=== PATIENT | male | born 1960 | race Caucasian/White ===

== ENCOUNTER 2018-10-01 12:22 | Emergency (ER) | payer OTHER ==
[~2018-10-01] VITALS: Ht 182.9 cm; Wt 122.5 kg
[2018-10-01 13:10] LABS: BILIRUBIN,URINE NEGATIVE (NEGATIVE); CLARITY,URINE SL CLOUDY (CLEAR); COLOR,URINE RED (YELLOW); KETONES,URINE NEGATIVE (NEGATIVE); LEUKOCYTE ESTERASE ,URINE NEGATIVE (NEGATIVE); NITRITE,URINE NEGATIVE (NEGATIVE); PROTEIN,URINE DIPSTICK 1+ (NEGATIVE); URINE UROBILINOGEN 0.2 mg/dL (0.2 - 1)
[2018-10-01 13:12] LABS: RBC,URINE >50 /HPF (0-5)
[2018-10-01 14:30] VITALS: BP 136/86
== END 2018-10-01 14:33 | disposition home or self-care (01) ==
LOC: ER 12:22
DX: R31.0 Gross hematuria (principal); R30.0 Dysuria; I10 Essential (primary) hypertension
CPT/HCPCS: 81001; 99283

== ENCOUNTER 2018-10-10 11:24 | Emergency (ER) | payer OTHER ==
[~2018-10-10] VITALS: Ht 182.9 cm; Wt 124.7 kg
--- NOTE | 2018-10-10 12:00 | Diagnostic Imaging Report ---
Exam: Right knee 3 views History: Pain with weightbearing Comparison: None. Findings: No acute, displaced fracture or dislocation. Joint spaces are well-maintained. No definite joint effusion. Soft tissues are unremarkable. Impression: No acute osseous abnormality. Signed by: Dr. Vijay Farah M.D. on 10/10/2018 11:56 AM
[2018-10-10] MEDS ORDERED: HYDROCODONE/APAP 5MG-325MG TAB ONE (12:05)
[2018-10-10] MEDS ORDERED: CLINDAMYCIN PHOS 300MG/2ML VIAL ONE (12:22)
[2018-10-10] MEDS ORDERED: HYDROCODONE/APAP 5MG-325MG TAB PO ONE (12:45)
[2018-10-10 12:56] VITALS: BP 119/80
[2018-10-10] MEDS ORDERED: HYDROCODONE/APAP 10MG-325MG TAB PO ONE (13:00)
[2018-10-10] MEDS ORDERED: CLINDAMYCIN PHOS 900MG/ 50ML 50 ML IV SCH (18:00)
== END 2018-10-10 13:25 | disposition home or self-care (01) ==
LOC: FSED 11:24
DX: M25.561 Pain in right knee (principal); L03.115 Cellulitis of right lower limb; R26.2 Difficulty in walking, not elsewhere classified; I10 Essential (primary) hypertension
CPT/HCPCS: 85025; 99284

== ENCOUNTER → 2018-10-12 | Outpatient (CLI) | payer OTHER ==
[~2018-10-12] MED LIST: ASPIR 8181 MG PO; AVODART0.5 MG PO; DIOVAN160 MG PO; FLOMAX0.4 MG PO; IOPAMIDOL 370 MG/ML 200 ML INFUS..BTL INJ ONE; METOPROLOL TART50 MG PO; SIMVASTATIN20 MG PO; SODIUM CHLORIDE 0.9% 250ML 250 ML ONE; VITAMIN B-121000 MC2; VITAMIN B-121000 MCG PO; vitamin d PO
[2018-10-12 14:02] LABS: BLOOD UREA NITROGEN 12 mg/dL (7-26); BUN/CREATININE RATIO 13 (6-25); CREATININE, SERUM 0.96 mg/dL (0.72-1.25); EST GLOMERULAR FILTRATION RATE > 60 ML/MIN (60-)
--- NOTE | 2018-10-12 16:11 | Diagnostic Imaging Report ---
EXAMINATION: CT of the abdomen and pelvis with and without contrast. TECHNIQUE: Spiral CT images of the abdomen and pelvis were performed from the lung bases to the lesser trochanters after the intravenous administration of 100 cc Isovue-370. Imaging was performed in prone position per CT urogram protocol. Coronal and sagittal reformatted images were obtained. COMPARISON: None. CLINICAL HISTORY:Gross hematuria DISCUSSION: ABDOMEN/PELVIS: LOWER THORAX:Unremarkable. HEPATOBILIARY: No focal hepatic lesions. No intra-or extrahepatic biliary ductal dilation. The gallbladder is normal. SPLEEN: No splenomegaly. PANCREAS: No focal masses or ductal dilatation. ADRENALS: No adrenal nodules. KIDNEYS/URETERS: 4-5 mm right lower pole calculus with an adjacent cluster of right lower pole calculi measuring 9 mm in aggregate dimension. 4 mm left ureteropelvic junction calculus without hydronephrosis. Excretory phase images show no additional filling defects within the upper collecting systems or ureters. 8-9 mm calculus in the urinary bladder (series 3 image 170). Subcentimeter hypoattenuating lesions in both kidneys are too small to further characterize but likely represent small cysts. PELVIC ORGANS/BLADDER: As above. PERITONEUM/RETROPERITONEUM: No free air or fluid. LYMPH NODES: No pelvic sidewall, retroperitoneal, or mesenteric lymphadenopathy. VESSELS: Atherosclerotic calcification of the abdominal aorta, major branch vessels, and iliac arterial systems without aneurysmal dilatation. Retroaortic left renal vein. GI TRACT: The large bowel shows no distention or wall thickening. Gas and fecal material is noted throughout. The appendix is not identified and may have been removed. No right lower quadrant inflammation. BONES AND SOFT TISSUE: No bony destructive lesions. No soft tissue abnormalities. IMPRESSION: Bilateral nonobstructing renal calculi, measuring up to 9 mm in aggregate dimension on the right and 4 mm at the left ureteropelvic junction. 8-9 mm calculus in the dependent portion of the urinary bladder. Atherosclerotic vascular disease. Signed by: Dr. Vijay Farah M.D. on 10/12/2018 4:07 PM
== END ==
LOC: CT 12:52
PROVIDERS: ATTEND Urology
DX: R31.0 Gross hematuria (principal); N20.0 Calculus of kidney
CPT/HCPCS: 36415; 74178; 82565; 84520; J7050; Q9967

== ENCOUNTER 2018-12-24 08:50 | Inpatient (IN) | payer OTHER ==
[~2018-12-24] VITALS: Ht 182.9 cm; Wt 122.5 kg
[2018-12-24] MEDS ORDERED: SODIUM CHLORIDE 0.9% 1000ML 1,000 ML IV STA (08:52)
--- OUTSIDE RECORDS SUMMARY | 2018-12-24 08:52 | XMS REPORT ---
Author Author [facility] Address Unknown Phone Unavailable Care Team Providers Care Dialysis Registered Nurse Name Role Phone CR WEINBERG Unavailable Unavailable Angie CHARLES Unavailable Unavailable Problems This patient has no known problems. Allergies, Adverse Reactions, Alerts This patient has no known allergies or adverse reactions. Medications This patient has no known medications. Results Test Description Test Time Test Comments Text Results Atomic Results Result Comments CT ABDOMEN/PELVIS WOW 2018-10-12 15:59:00 [facility] [address] [address] Patient Name: EDWIN GONZALEZ MR #: [id number] : 1960 Age/Sex: 58/M Req #: [id number] Adm Physician: Ordered by: CR WEINBERG MD Report #: [id number] Location: CT Room/Bed: Procedure: [id number] CT/CT ABDOMEN/PELVIS WOW Exam Date: 10/12/18 Exam Time: 1440 REPORT STATUS: Signed EXAMINATION: CT of the abdomen and pelvis with and without contrast. TECHNIQUE: Spiral CT images of the abdomen and pelvis were performed from the lung bases to the lesser trochanters after the intravenous administration of 100 cc Isovue-370. Imaging was performed in prone position per CT urogram protocol. Coronal and sagittal reformatted images were obtained. COMPARISON: None. CLINICAL HISTORY:Gross hematuria DISCUSSION: ABDOMEN/PELVIS: LOWER THORAX:Unremarkable. HEPATOBILIARY: No focal hepatic lesions. No intra-or extrahepatic biliary ductal dilation. The gallbladder is normal. SPLEEN: No splenomegaly. PANCREAS: No focal masses or ductal dilatation. ADRENALS: No adrenal nodules. KIDNEYS/URETERS: 4-5 mm right lower pole calculus with an adjacent cluster of right lower pole calculi measuring 9 mm in aggregate dimension. 4 mm left ureteropelvic junction calculus without hydronephrosis. Excretory phase images show no additional filling defects within the upper collecting systems or ureters. 8-9 mm calculus in the urinary bladder (series 3 image 170). Subcentimeter hypoattenuating lesions in both kidneys are too small to further characterize but likely represent small cysts. PELVIC ORGANS/BLADDER: As above. PERITONEUM/RETROPERITONEUM: No free air or fluid. LYMPH NODES: No pelvic sidewall, retroperitoneal, or mesenteric lymphadenopathy. VESSELS: Atherosclerotic calcification of the abdominal aorta, major branch vessels, and iliac arterial systems without aneurysmal dilatation. Retroaortic left renal vein. GI TRACT: The large bowel shows no distention or wall thickening. Gas and fecal material is noted throughout. The appendix is not identified and may have been removed. No right lower quadrant inflammation. BONES AND SOFT TISSUE: No bony destructive lesions. No soft tissue abnormalities. IMPRESSION: Bilateral nonobstructing renal calculi, measuring up to 9 mm in aggregate dimension on the right and 4 mm at the left ureteropelvic junction. 8-9 mm calculus in the dependent portion of the urinary bladder. Atherosclerotic vascular disease. Signed by: Dr. Leticia Toney M.D. on 10/12/2018 4:07 PM Dictated By: LETICIA TONEY MD 1609 Transcribed By: PHILLY on 10/12/18 1605 COPY TO: CR WEINBERG MD KNEE 3VW RT - HOPD 2018-10-10 11:54:00 [address] [address] Patient Name: EDWIN GONZALEZ MR #: [id number] : 1960 Age/Sex: 58/M Req #: [id number] Adm Physician: Ordered by: NENA CHARLES MD Report #: [id number] Location: [facility] Room/Bed: Procedure: [id number] HOPD/KNEE 3VW RT - HOPD Exam Date: 10/10/18 Exam Time: 1145 REPORT STATUS: Signed Exam: Right knee 3 views History: Pain with weightbearing Comparison: None. Findings: No acute, displaced fracture or dislocation. Joint spaces are well-maintained. No definite joint effusion. Soft tissues are unremarkable. Impression: No acute osseous abnormality. Signed by: Dr. Leticia Toney M.D. on 10/10/2018 11:56 AM Dictated By: LETICIA TONEY MD 11 56 Transcribed By: PHILLY on 10/10/18 0822 COPY TO: NENA CHARLES MD
--- OUTSIDE RECORDS SUMMARY | 2018-12-24 08:52 | XMS REPORT | Clinical Summary ---
Author Author [facility] Organization [facility] Address Unknown Phone Unavailable Care Team Providers Care Shot Hole Shooter Name Role Phone Antonio Heredia MD PCP Allergies No Known Allergies Medications End Date Status Medication Sig Dispensed Refills Start Date Active valsartan-hydrochlorothia TK 1 T PO QD 11 zide (DIOVAN-HCT) 160-25 9 mg per tablet Active tamsulosin (FLOMAX) 0.4 0 mg capsule 9 Active simvastatin (ZOCOR) 20 MG TK 1 T PO QHS 11 tablet 9 Active metoprolol succinate XL TK 1 T PO QHS 11 (TOPROL-XL) 50 mg 24 hr 9 tablet Active dutasteride (AVODART) 0.5 TK ONE C PO 11 mg capsule QHS 9 Active Problems Problem Noted Date Calculus, kidney 10/24/2018 Encounters Care Team Description Date Type Specialty Willie Draper MD RIGHT ESWL 10/24/2018 Surgery General Surgery eSb Maguire MD Mathew, Jibie Elizabeth 10/24/2018 Anesthesia General Surgery Event Willie Draper MD 10/24/2018 Hospital General Surgery Encounter after 12/23/2017 Family History Medical History Relation Name Comments Cancer Brother Cancer Father Diabetes Mother Relation Name Status Comments Brother prostate Father prostate Mother Social History Date Tobacco Use Types Packs/Day Years Used Current Every Day Smoker Cigarettes 0.5 40 Smokeless Tobacco: Never Used Tobacco Cessation: Ready to Quit: No; Counseling Given: No Drinks/Week oz/Week Comments Alcohol Use 5 Shots of liquor 5.0 Yes Sex Assigned at Date Recorded Not on file Industry Job Start Date Occupation Not on file Not on file Not on file Travel End Travel History Travel Start No recent travel history available. Last Filed Vital Signs Reading Time Taken Comments Vital Sign 149/84 10/24/2018 4:50 PM CDT Blood Pressure 61 10/24/2018 4:50 PM CDT Pulse 36.4 C (97.6 F) 10/24/2018 4:21 PM CDT Temperature 17 10/24/2018 4:50 PM CDT Respiratory Rate 99% 10/24/2018 4:50 PM CDT Oxygen Saturation - - Inhaled Oxygen Concentration - - Weight - - Height - - Body Mass Index Plan of Treatment Health Maintenance Due Date Last Done Comments COLONOSCOPY SCREENING 02/03/2010 SHINGLES VACCINES (#1) 02/03/2010 INFLUENZA VACCINE 11/15/2018 Procedures Comments Procedure Name Priority Date/Time Associated Diagnosis OR AN ELECTIVE Routine 10/24/2018 SUPRAGLOTTIC AIRWAY 3:23 PM CDT Procedure Note - Eleonora Ch - 10/24/2018 3:23 PM CDT Airway Performed by: Eleonora Ch Authorized by: Michael Maguire MD Location: OR Urgency: Elective Difficult Airway: No Anesthesio logist: Michael Maguire MD Resident/C RNA/AA: Eleonora Ch Performed by: resident/C RNA/AA Preoxygena tamanna with 100% O2: Yes C-spine Precaution s Maintained Throughout : Yes Mask Ventilatio n: Not attempted Final Airway Type: Supraglott ic airway Final LMA: Unique LMA Size: 5 Number of Attempts at Approach: 1 EXTRACORPOREAL SHOCKWAVE 10/24/2018 RIGHT KIDNEY STONE N20.0 LITHOTRIPSY (ESWL) 3:11 PM CDT Special Needs NEXTMED CONF# [id number] EVELIN PT WILL BE AM ARRIVAL/BL XR ABDOMEN 1 VW STAT 10/24/2018 12:20 PM CDT after 12/23/2017 Results * XR Abdomen 1 Vw (10/24/2018 12:20 PM CDT) Specimen Narrative Performed At EXAMINATION:XR ABDOMEN 1 VW [facility] CLINICAL HISTORY:kidney stone COMPARISON:None. IMPRESSION: 1.There is a 9 mm calculus in the right lower renal pole, and a couple of additional sub-5 mm right intrarenal lower pole calculi. No left renal calculus is seen. 2.Calculi in the pelvis are indeterminate but likely phleboliths. The largest is 11 mm to the right of the lower sacrum. 3.The bowel gas pattern is normal. 4.There are degenerative changes in the hips. [id number] Procedure Note Hm Interface, Radiology Results Incoming - 10/24/2018 12:29 PM CDT EXAMINATION: XR ABDOMEN 1 VW CLINICAL HISTORY: kidney stone COMPARISON: None. IMPRESSION: 1. There is a 9 mm calculus in the right lower renal pole, and a couple of additional sub-5 mm right intrarenal lower pole calculi. No left renal calculus is seen. 2. Calculi in the pelvis are indeterminate but likely phleboliths. The largest is 11 mm to the right of the lower sacrum. 3. The bowel gas pattern is normal. 4. There are degenerative changes in the hips. 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
[2018-12-24] MEDS ORDERED: METOPROLOL TARTRATE 25 MG TAB PO SCH (09:00)
[2018-12-24] MEDS ORDERED: ONDANSETRON HCL INJ 2MG/ML 2ML 2 MG/ML VIAL IV PRN (09:00)
[2018-12-24] MEDS ORDERED: NITROGLYCERIN 0.4 MG SUBL SL PRN (09:00)
[2018-12-24] MEDS ORDERED: MORPHINE SULFATE 2 MG/ML SYR 1ML IV PRN (09:00)
[2018-12-24 09:16] LABS: BASOPHILS % 0.5 % (0.0-1.0); EOSINOPHILS # (AUTO) 0.3 (0.0-0.4); EOSINOPHILS % 4.7 % (0.0-6.0); HEMATOCRIT 40.3 % (38.2-49.6); LYMPHOCYTES # (AUTO) 2.4 (1.0-3.2); LYMPHOCYTES % 43.2 % (18.0-39.1); MEAN CORPUSCULAR HEMOGLOBIN 33.2 pg (28-32); MEAN CORPUSCULAR HGB CONC 34.7 g/dL (31-35); MEAN CORPUSCULAR VOLUME 95.5 fL (81-99); MONOCYTES # (AUTO) 0.5 (0.2-0.8); MONOCYTES % 8.9 % (4.4-11.3); NEUTROPHILS # (AUTO) 2.3 (2.1-6.9); NEUTROPHILS % 42.3 % (38.7-80.0); PLATELET COUNT 210 x10e3/uL (140-360); RED BLOOD COUNT 4.22 x10e6/uL (4.3-5.7); RED CELL DISTRIBUTION WIDTH 13.4 % (11.7-14.4)
[2018-12-24 09:17] LABS: BILIRUBIN,URINE NEGATIVE (NEGATIVE); CLARITY,URINE CLEAR (CLEAR); COLOR,URINE YELLOW (YELLOW); KETONES,URINE NEGATIVE (NEGATIVE); LEUKOCYTE ESTERASE ,URINE NEGATIVE (NEGATIVE); NITRITE,URINE NEGATIVE (NEGATIVE); PROTEIN,URINE DIPSTICK NEGATIVE (NEGATIVE); URINE UROBILINOGEN 0.2 mg/dL (0.2 - 1)
[2018-12-24] MEDS ORDERED: vitamin d PO (09:23)
[2018-12-24] MEDS ORDERED: AVODART0.5 MG PO (09:23)
[2018-12-24] MEDS ORDERED: FLOMAX0.4 MG PO (09:23)
[2018-12-24] MEDS ORDERED: METOPROLOL TART50 MG PO (09:23)
[2018-12-24] MEDS ORDERED: VITAMIN B-121000 MCG PO (09:23)
[2018-12-24] MEDS ORDERED: SIMVASTATIN20 MG PO (09:23)
[2018-12-24] MEDS ORDERED: VITAMIN B-121000 MC2 (09:23)
[2018-12-24] MEDS ORDERED: ASPIR 8181 MG PO (09:23)
[2018-12-24] MEDS ORDERED: DIOVAN160 MG PO (09:23)
--- NOTE | 2018-12-24 09:26 | Diagnostic Imaging Report ---
EXAMINATION: CHEST SINGLE (PORTABLE) INDICATION: Chest pain COMPARISON: None FINDINGS: LINES/TUBES:EKG leads overlie the chest. LUNGS:The lungs are moderately inflated. No focal consolidation or pulmonary edema. Mild subsegmental atelectasis at the right lung base. PLEURA:No pleural effusion or pneumothorax. MEDIASTINUM:The cardiomediastinal silhouette is mildly enlarged. BONES/SOFT TISSUES:No acute osseous injury. ABDOMEN:No free air under the diaphragm. IMPRESSION: No focal pneumonia or pulmonary edema. Mild subsegmental atelectasis at the right lung base. Mild cardiomegaly. Signed by: Syed Figueroa MD on 12/24/2018 9:23 AM
[2018-12-24 09:28] LABS: INR 0.9; PROTHROMBIN TIME 12.6 seconds (11.9-14.5)
[2018-12-24 09:29] LABS: PARTIAL THROMBOPLASTIN TIME 30.1 seconds (23.8-35.5)
[2018-12-24] MEDS: ASPIRIN 325 MG TAB EC PO SCH (09:30)
[2018-12-24] MEDS ORDERED: ASPIRIN 81 MG CHEW TAB PO ONE (09:30)
[2018-12-24] MEDS ORDERED: ENOXAPARIN SOD INJ 120 MG/0.8 ML SYR SC ONE (09:30)
[2018-12-24] MEDS ORDERED: ONDANSETRON HCL INJ 2MG/ML 2ML 2 MG/ML VIAL IV ONE ×2 (09:30→11:00)
[2018-12-24] MEDS ORDERED: MORPHINE SULFATE INJ 4 MG/ML INJ 1ML IV ONE ×2 (09:30→11:00)
[2018-12-24] MEDS ORDERED: METOPROLOL TARTRATE 50 MG TAB PO ONE (09:30)
[2018-12-24] MEDS ORDERED: PANTOPRAZOLE 40 MG 10ML VIAL IV ONE (09:30)
--- OUTSIDE RECORDS SUMMARY | 2018-12-24 09:30 | XMS REPORT | Clinical Summary ---
Author Author [facility] Address Unknown Phone Unavailable Care Team Providers Care Production Officer Name Role Phone Antonio Heredia MD PCP [...] MD RIGHT ESWL 10/24/2018 Surgery General Surgery Seb Maguire MD Mathew, Jibie Elizabeth 10/24/2018 Anesthesia [...] Comments Procedure Name Priority Date/Time Associated Diagnosis FL AN ELECTIVE Routine 10/24/2018 SUPRAGLOTTIC AIRWAY 3:23 [...] 3:11 PM CDT Special Needs NEXTMED CONF# [id number] EVELIN PT WILL BE AM ARRIVAL/BL XR [...] 4.There are degenerative changes in the hips. [id number] Procedure Note Hm Interface, Radiology Results Incoming [...] There are degenerative changes in the hips. [id number] Performing Organization Address City/State/Zipcode Phone Number [facility] [address] [place] [address] after 12/23/2017 Insurance Type Payer Benefit Subscriber ID Effective Phone Address Plan / Dates Group O [facility] UMR xxxxxxxx 2017-P [employer] CHOICE [employer] Advance Directives For more information, please contact: [phone] Patient Operations Lead Explanation Type Date Recorded Advance Directives, Living Will and Medical Power of Platform Consultant
[2018-12-24 09:36] LABS: ALANINE AMINOTRANSFERASE 21 IU/L (0-55); ALBUMIN 3.7 g/dL (3.5-5.0); ALBUMIN/GLOBULIN RATIO 1.3 (0.8-2.0); ALKALINE PHOSPHATASE 40 IU/L (40-150); ANION GAP 15.1 mmol/L (8-16); BLOOD UREA NITROGEN 13 mg/dL (7-26); BUN/CREATININE RATIO 16 (6-25); CALCIUM 9.3 mg/dL (8.4-10.2); CARBON DIOXIDE 25 mmol/L (22-29); CHLORIDE 104 mmol/L (98-107); CREATINE KINASE 92 IU/L (30-200); CREATININE, SERUM 0.83 mg/dL (0.72-1.25); EST GLOMERULAR FILTRATION RATE > 60 ML/MIN (60-); GLUCOSE 93 mg/dL (74-118); LIPASE 25 U/L (8-78); MAGNESIUM 1.8 MG/DL (1.3-2.1); POTASSIUM 4.1 mmol/L (3.5-5.1); SODIUM 140 mmol/L (136-145)
[2018-12-24] MEDS: NICOTINE 21 MG/EA PATCH TOP SCH (09:37)
[2018-12-24 09:38] LABS: BACTERIA,URINE FEW /HPF; EPITHELIAL CELLS,URINE FEW /LPF; MUCUS,URINE MODERATE (RARE); RBC,URINE 0-5 /HPF (0-5)
[2018-12-24] MEDS: FAMOTIDINE 20 MG/2 ML VIAL IV SCH ×2 (09:38→21:00)
[2018-12-24] MEDS: LISINOPRIL 10 MG TAB PO SCH (09:39)
[2018-12-24 09:56] LABS: THYROID STIMULATING HORMONE 0.601 uIU/mL (0.350-4.940)
[2018-12-24] MEDS ORDERED: HYDROCORTISONE SOD SUCCINATE 100 MG VIAL IV ONE (11:30)
--- NOTE | 2018-12-24 11:58 | Diagnostic Imaging Report ---
EXAM: CT Chest WITH contrast- Pulmonary Embolism Protocol INDICATION: Chest pain COMPARISON: Chest radiograph of earlier the same day. TECHNIQUE: Chest was scanned utilizing a multidetector helical scanner from the lung apex through the level of the diaphragm after administration of IV contrast. Thin section reconstructions were obtained with special concentration on the pulmonary arteries. Coronal and sagittal reformations were obtained. Pulmonary embolism protocol was performed. IV CONTRAST: 100 cc of Isovue 370 RADIATION DOSE: Total DLP: 617.95 mGy*cm Dose modulation, iterative reconstruction, and/or weight based adjustment of the mA/kV was utilized to reduce the radiation dose to as low as reasonably achievable. COMPLICATIONS: None FINDINGS: LINES/ TUBES: None. PULMONARY ARTERIES: No filling defect is identified within the pulmonary arteries to the segmental level. The subsegmental pulmonary arteries are not well opacified. Main pulmonary artery measures 3.4 in diameter. LUNGS AND AIRWAYS: The central airways are patent. No focal consolidation. Mild bibasilar dependent subsegmental atelectasis. No suspicious pulmonary nodules. PLEURA: The pleural spaces are clear. HEART AND MEDIASTINUM: The thyroid gland appears unremarkable. No supraclavicular, axillary, subpectoral, or mediastinal lymphadenopathy. Mild cardiomegaly. No pericardial effusion. No right heart strain. UPPER ABDOMEN: Limited contrast-enhanced views of the upper abdomen demonstrate no focal abnormality in the partially visualized liver, gallbladder, spleen, pancreas, adrenals, or upper most kidneys. BONES: No acute osseous injury. Mild degenerative changes of the visualized spine. No suspicious lytic or blastic lesions. SOFT TISSUES: Unremarkable. IMPRESSION: No pulmonary embolism. No focal lung consolidation. Mild cardiomegaly. Signed by: Syed Figueroa MD on 12/24/2018 11:55 AM
[2018-12-24] MEDS: ENOXAPARIN SODIUM INJ 100 MG/ML SYR SC SCH ×2 (12:35→21:00)
[2018-12-24] MEDS ORDERED: SODIUM CHLORIDE 0.9% 50ML 50 ML ONE (16:53)
[2018-12-24] MEDS ORDERED: IOPAMIDOL 370 MG/ML 200 ML INFUS..BTL INJ ONE (16:54)
--- NOTE | 2018-12-24 17:04 | History and Physical ---
Mr. Sargent is a very pleasant 58-year-old man, who presents to the emergency room this morning with a complaint of left-sided chest discomfort. HISTORY OF PRESENT ILLNESS: The patient reports that this began when he woke up about 4 o'clock this morning, which is the usual time for him to get ready to go to work, but he reports it was a left-sided squeezing chest discomfort that had some radiation to both arms and hands. He reports he did have a similar symptom like this 3 or 4 years ago and had an ER evaluation that evidently was unrevealing and has not recurred until this time. PAST MEDICAL HISTORY: Significant for hypertension and hyperlipidemia. He has had previous prostate problems and takes a medication for that. MEDICATIONS: He reports his current home medications include aspirin 81 mg daily, vitamin B12, Avodart 0.5 mg daily, metoprolol tartrate 50 mg at bedtime, simvastatin 20 mg daily, Flomax 0.4 mg daily, and Diovan 160 mg daily. PERSONAL AND SOCIAL HISTORY: The patient started smoking as a teenager, which is about 40 years ago. PAST SURGICAL HISTORY: The patient had appendectomy and tonsillectomy as a child. REVIEW OF SYSTEMS: CARDIAC: Not known any cardiac diagnosis in the past. PHYSICAL EXAMINATION: GENERAL: At this time shows a large obese white man, who is uncomfortable. VITAL SIGNS: Current blood pressure 140/70. He reports he is about 6 feet tall and thinks he is about 270 pounds. HEAD, EYES, EARS, NOSE, AND THROAT: Unremarkable. NECK: No jugular venous distention. No bruits. THORAX: Left chest wall very tender to palpation. HEART: Sounds S1 and S2 are equal. No murmurs. LUNGS: Clear. ABDOMEN: Protuberant. Normal bowel sounds. EXTREMITIES: No cyanosis, clubbing, or edema. Distal pulses are intact. PERTINENT LABORATORY STUDIES: Show white cell count 5.5 and hemoglobin 14.0. Chemistry show normal sodium and potassium, BUN 13, creatinine 0.8, and glucose 93. Troponins normal. BNP 16. TSH 0.6. Urinalysis shows 6 to 10 white cells and 0 to 5 red cells. Chest x-ray suggests some atelectasis. ASSESSMENT: 1. Atypical chest discomfort. 2. Chest wall pain. 3. Hypertension. 4. Hyperlipidemia. 5. History of tobacco abuse. PLAN: We will monitor him carefully. Give one dose of IV Solu-Cortef and recheck cardiac enzymes, echocardiogram, and plan stress Cardiolite for the morning. Further management based on clinical course. MD DWIGHT Camarena/BILLY /[id number] cc: Antonio Heredia
--- NOTE | 2018-12-24 17:58 | NUR ---
Recvd patient from ER via wheelchair accompanied with his . AAOx3 ambulates. chest pain rating 4/10, no distress noted, call light in reach
--- NOTE | 2018-12-24 18:15 | NUR ---
collected blood and sent to lab 2nd cardiac markers
[2018-12-24 18:35] VITALS: BP 128/78
[2018-12-24 18:56] LABS: CREATINE KINASE 80 IU/L (30-200)
--- NOTE | 2018-12-24 19:34 | NUR ---
Received change of shift report from AM nurse. Walking rounds completed.
[2018-12-24 20:00] VITALS: BP 133/71
[2018-12-24] MEDS: METOPROLOL TARTRATE 25 MG TAB PO SCH (21:00)
[2018-12-24] MEDS ORDERED: SIMVASTATIN 40 MG TAB PO SCH (21:00)
--- NOTE | 2018-12-24 21:00 | NUR ---
Patient c/o CP. Given pain and nausea meds as ordered by MD. Continue monitor.
--- NOTE | 2018-12-25 | NUR ---
Patient states pain meds helped relieve pain.
[2018-12-25 04:00] VITALS: BP 118/77
[2018-12-25 05:53] LABS: BASOPHILS % 0.2 % (0.0-1.0); EOSINOPHILS # (AUTO) 0.1 (0.0-0.4); EOSINOPHILS % 1.6 % (0.0-6.0); HEMATOCRIT 36.7 % (38.2-49.6); HEMOGLOBIN 12.5 g/dL (14.0-18.0); LYMPHOCYTES % 36.6 % (18.0-39.1); MEAN CORPUSCULAR HEMOGLOBIN 32.9 pg (28-32); MEAN CORPUSCULAR HGB CONC 34.1 g/dL (31-35); MEAN CORPUSCULAR VOLUME 96.6 fL (81-99); MONOCYTES # (AUTO) 0.8 (0.2-0.8); MONOCYTES % 10.2 % (4.4-11.3); NEUTROPHILS # (AUTO) 4.2 (2.1-6.9); NEUTROPHILS % 51.3 % (38.7-80.0); PLATELET COUNT 194 x10e3/uL (140-360); RED CELL DISTRIBUTION WIDTH 13.2 % (11.7-14.4)
[2018-12-25 06:30] LABS: ALANINE AMINOTRANSFERASE 17 IU/L (0-55); ALBUMIN 3.4 g/dL (3.5-5.0); ALBUMIN/GLOBULIN RATIO 1.4 (0.8-2.0); ALKALINE PHOSPHATASE 34 IU/L (40-150); ANION GAP 12.4 mmol/L (8-16); BLOOD UREA NITROGEN 16 mg/dL (7-26); BUN/CREATININE RATIO 19 (6-25); CALCIUM 8.9 mg/dL (8.4-10.2); CARBON DIOXIDE 28 mmol/L (22-29); CHLORIDE 102 mmol/L (98-107); CHOL/HDL RATIO 4.2 (3.9-4.7); CHOLESTEROL 184 MD/DL (0-199); CREATININE, SERUM 0.83 mg/dL (0.72-1.25); EST GLOMERULAR FILTRATION RATE > 60 ML/MIN (60-); GLUCOSE 95 mg/dL (74-118); HDL CHOLESTEROL 44 MG/DL (40-60); LDL CHOLESTEROL 89 MG/DL (60-130); MAGNESIUM 1.9 MG/DL (1.3-2.1); POTASSIUM 3.4 mmol/L (3.5-5.1); SODIUM 139 mmol/L (136-145); TRIGLYCERIDES 253 MG/DL (0-149)
[2018-12-25 07:36] LABS: CREATINE KINASE MB 0.7 ng/mL (0-5.0)
[2018-12-25 08:00] VITALS: BP 133/78
[2018-12-25 08:18] VITALS: BP 133/78
[2018-12-25] MEDS: FAMOTIDINE 20 MG/2 ML VIAL IV SCH (09:21)
[2018-12-25] MEDS: NICOTINE 21 MG/EA PATCH TOP SCH (09:22)
[2018-12-25] MEDS: ENOXAPARIN SODIUM INJ 100 MG/ML SYR SC SCH (09:22)
[2018-12-25] MEDS ORDERED: POTASSIUM CHLORIDE 10MEQ EA PO ONE ×2 (10:40→14:15)
[2018-12-25 13:45] VITALS: BP 139/87
[2018-12-25] MEDS: ASPIRIN 325 MG TAB EC PO SCH (13:45)
[2018-12-25] MEDS: METOPROLOL TARTRATE 25 MG TAB PO SCH (13:45)
[2018-12-25] MEDS: LISINOPRIL 10 MG TAB PO SCH (13:45)
--- NOTE | 2018-12-25 15:20 | NUR ---
Visit made by the Spiritual Care Department Pastoral Visitor, Tracie Gomez. Pt sleeping soundly and no family present. Pastoral Visitor left a card describing availability of masonry supervisor and instructions on how to contact a masonry supervisor. RAKEL OTOOLE Hybrid Car Mechanic Spiritual Care Department O: [phone] Pager: [phone] ([phone] number calling from)
[2018-12-25] MEDS: ACETAMINOPHEN 325 MG TAB PO PRN ×2 (15:37→16:49)
[2018-12-25 16:23] VITALS: BP 128/73
--- NOTE | 2018-12-25 17:40 | NUR ---
here to see pt and has given orders to discharge pt home. Pt verbalized understanding of all discharge instructions. Pt discharged with all personal belongings.
--- NOTE | 2018-12-25 20:07 | Myoview Stress Test ---
DATE OF STUDY: 12/24/2018 10:51:00 Stress Test - Treadmill ONLY STUDY: Stress Myoview. FINDINGS: The patient had resting perfusion images taken after injection of 11 mCi of technetium-99m Myoview. Later, the patient exercised on Andrey protocol for a total of 7 minutes and 1 second, reaching 85% of age predicted maximum. The treadmill was stopped suddenly by the system support technician with no cool down. He did not have any leg cramping however. At maximal exercise, he was given 33 millicuries of technetium-99m Myoview. Perfusion images were taken by rotational tomography. Comparison of resting and Lexiscan stress images shows no significant evidence of any perfusion defect. Additionally, gated wall motion images were obtained and calculated ejection fraction is normal at 62% without regional wall motion abnormality noted. FINAL IMPRESSIONS: 1. Normal Lexiscan Myoview for perfusion. 2. Normal left ventricular function with calculated ejection fraction of 62%. MD DWIGHT Camarena/BILLY /[id number] cc: Dr. Cody Lee
--- NOTE | 2018-12-26 16:17 | Discharge Summary ---
Mr. Sargent is a very pleasant 58-year-old man, smoker with hypertension, hyperlipidemia, who presented to the emergency room with severe chest discomfort on the . HOSPITAL COURSE: Initial evaluation demonstrated that he had very exquisite tenderness to the left side of his chest to touch. EKG was unremarkable as were his cardiac enzymes. He was given one dose of IV Solu-Cortef. Today, the patient is feeling considerably better, performed a stress test, which showed no ischemia on EKG treadmill and Cardiolite showed normal perfusion and normal EF 61%. He was discharged home at this time to continue his previous medications and to take Medrol Dosepak as indicated. He will follow up with on a regular basis. DISCHARGE DIAGNOSES: 1. Costochondritis. 2. Hypertension. 3. Hyperlipidemia. 4. Noncardiac chest pain. MD DWIGHT Camarena/BILLY /[id number]
== END 2018-12-25 17:39 | disposition home or self-care (01) | DRG 206 ==
LOC: ER 08:50 → ERHOLD 08:56 → MED/SURG3 18:12
PROVIDERS: ADMIT Internal Medicine Cardiovascular Disease; ATTEND Internal Medicine Cardiovascular Disease
DX: M94.0 Chondrocostal junction syndrome [Tietze] (principal); E78.5 Hyperlipidemia, unspecified; I10 Essential (primary) hypertension; F17.210 Nicotine dependence, cigarettes, uncomplicated
CPT/HCPCS: 36415; 71045; 71260; 78452; 80053; 80061; 81001; 82550; 82553; 83690; 83735; 83880; 84100; 84443; 84484; 85025; 85610; 85730; 93005; 93017; 93306; 99284; A9502; J1650; J1720; J2270; J2405; J7030; Q9967